=== PATIENT | female | born 1985 | race Asian ===

== ENCOUNTER → 2017-09-15 | Outpatient (CLI) | payer OTHER ==
[2017-09-15 13:25] LABS: BASO % 0.3 % (0.0-1.0); EOS # 0.1 10^3/uL (0.0-0.50); HEMATOCRIT 33.8 % (36.0-47.0); HEMOGLOBIN 11.8 g/dl (12.0-15.5); IMMATURE GRANULOCYTE % 0.6 % (0-3.0); LYMPH # 1.2 10^3/uL (1.5-4.5); LYMPH % 18.8 % (24.0-44.0); MEAN CORPUSCULAR HEMOGLOBIN 30.2 pg (27.0-33.0); MEAN CORPUSCULAR HGB CONC 34.9 g/dl (32.0-36.5); MEAN CORPUSCULAR VOLUME 86.4 fl (80.0-96.0); MONO # 0.4 10^3/uL (0.0-0.8); MONO % 5.9 % (0.0-5.0); NEUTROPHILS # 4.7 10^3/uL (1.8-7.7); NEUTROPHILS % 72.4 % (36.0-66.0); PLATELET COUNT, AUTOMATED 262 10^3/uL (150-450); RED BLOOD COUNT 3.91 10^6/uL (4.00-5.40); RED CELL DISTRIBUTION WIDTH 13.5 % (11.5-14.5); WHITE BLOOD COUNT 6.5 10^3/uL (4.0-10.0)
[2017-09-15 14:04] LABS: HBsAg Prenatal NEGATIVE (NEGATIVE); RUBELLA IgG QUALITATIVE IMMUNE (IMMUNE)
[2017-09-15 14:32] LABS: HEPATITIS C VIRUS ABY INDEX 0.1 INDEX (<0.8)
[2017-09-15 14:34] LABS: HIV 1&2 SCREEN CENTAUR NEGATIVE (NEGATIVE)
[2017-09-15 15:00] LABS: CHLAMYDIA DNA AMPLIFICATION NEGATIVE (NEGATIVE); GC DNA AMPLIFICATION NEGATIVE (NEGATIVE)
== END ==
LOC: M SMT 10:12
DX: Z36.89 Encounter for other specified antenatal screening (principal); Z3A.14 14 weeks gestation of pregnancy
CPT/HCPCS: 86762

== ENCOUNTER → 2017-10-05 | Outpatient (CLI) | payer OTHER | LOC: M RAD 06:14 | DX: Z34.82 Encounter for supervision of other normal pregnancy, second trimester (principal) ==

== ENCOUNTER → 2017-12-10 | Outpatient (CLI) | payer OTHER ==
[2017-12-10 13:56] LABS: BASO % 0.3 % (0.0-1.0); EOS # 0.1 10^3/uL (0.0-0.50); HEMATOCRIT 37.9 % (36.0-47.0); HEMOGLOBIN 12.7 g/dl (12.0-15.5); LYMPH # 0.8 10^3/uL (1.5-4.5); LYMPH % 11.1 % (24.0-44.0); MEAN CORPUSCULAR HEMOGLOBIN 30.2 pg (27.0-33.0); MEAN CORPUSCULAR HGB CONC 33.5 g/dl (32.0-36.5); MEAN CORPUSCULAR VOLUME 90.2 fl (80.0-96.0); MONO # 0.4 10^3/uL (0.0-0.8); MONO % 5.9 % (0.0-5.0); NEUTROPHILS # 5.8 10^3/uL (1.8-7.7); NEUTROPHILS % 80.7 % (36.0-66.0); PLATELET COUNT, AUTOMATED 222 10^3/uL (150-450); RED CELL DISTRIBUTION WIDTH 13.8 % (11.5-14.5); WHITE BLOOD COUNT 7.1 10^3/uL (4.0-10.0)
[2017-12-10 15:24] LABS: GLUCOSE CHALLENGE TEST 1 HOUR 105 MG/DL (LESS THAN 140)
== END ==
LOC: M SMT 09:47
DX: Z34.82 Encounter for supervision of other normal pregnancy, second trimester (principal); Z36.89 Encounter for other specified antenatal screening
CPT/HCPCS: 82950

== ENCOUNTER → 2018-01-31 | Outpatient (REF) | payer OTHER | LOC: M LAB REF 17:07 | PROVIDERS: ATTEND Advanced Practice Midwife | DX: Z34.83 Encounter for supervision of other normal pregnancy, third trimester (principal); Z36.85 Encounter for antenatal screening for Streptococcus B ==

== ENCOUNTER 2018-02-28 11:13 | Inpatient (IN) | payer OTHER ==
[~2018-02-28] VITALS: Ht 165.1 cm; Wt 74.5 kg
[2018-02-28] VITALS (44 sets, daily range): BP systolic 92–130; BP diastolic 52–80
[2018-02-28] MEDS ORDERED: PRENTAB9 PO (11:37)
[2018-02-28] MEDS ORDERED: OXYTOCIN DRIP 30 UNITS in APPROPRIATE DILUENT 1 EA IV SCH ×2 (12:00→23:21)
[2018-02-28] MEDS: LR 1,000 ML IV SCH ×4 (12:32→21:14)
[2018-02-28 12:35] LABS: HEMATOCRIT 36.9 % (36.0-47.0); HEMOGLOBIN 12.6 g/dl (12.0-15.5); MEAN CORPUSCULAR HEMOGLOBIN 30.4 pg (27.0-33.0); MEAN CORPUSCULAR HGB CONC 34.1 g/dl (32.0-36.5); MEAN CORPUSCULAR VOLUME 89.1 fl (80.0-96.0); PLATELET COUNT, AUTOMATED 228 10^3/uL (150-450); RED BLOOD COUNT 4.14 10^6/uL (4.00-5.40); WHITE BLOOD COUNT 6.6 10^3/uL (4.0-10.0)
--- NOTE | 2018-02-28 14:09 | HPEPDOC ---
Obstetrical History & Physical General Date of Admission Feb 28, 2018 at 11:13 Primary Care Physician: LUNA BRANCH CNM History of Present Illness CC: Induction of Labor HPI: Munria Almaguer is a 31 y.o. @ 40-2/7 weeks gestation with an ALLISON of 02/26/18. LMP: 05/22/2017. She presents for induction of labor. Reports occasional contractions and active movement. Denies vaginal bleeding or leaking of fluid. Uterine Contractions q 7-8 minutes that last 1-2 minutes since 1135. SROM? No. Movement? Yes. Bleeding/Discharge? Scant show from cervical exam. Care/Lab: Blood type: A+, Rh+, Ab negative BPs: WNL Total weight gained: 39 lbs GBS neg, group C+ Rubella: immune HIV neg Pap: hx of + HPV (2010). GC/CT: neg/neg Hep BsAg neg VDRL/RPR: non-reactive Diabetes Screen: 105 OB U/S: 09/03/2017: 1st TM US: Transabd U/S (limited, in-office): Single, live intrauterine with cardiac activity present. NZE=815qoz. [place] I- rump length consistent with 14+6 weeks EGA (c/w LMP). FINAL EDC: 02/26/18. No adnexal masses. No uterine masses. No free fluid. 10/05/2017: Anatomy: SIUP, FHR 152, EFW 310 grams, 59%. Placenta anterior grade 0, no previa or abruption. PHIL normal. Cervix 4 cm. Anatomy complete and normal. 01/31/2018 Vertex. POB Hx: Year Gender Gest Delivery Weight Complications? 1. 02/2012 F 41-3/7 8lbs 12 oz none 2. 03/2014 7-0/7 Spont 3. 06/2015 F 41-5/7 9lbs 4 oz none PMHx: Meds: prenatals? Yes Hypothyroid in 2nd PSHx: D&C in 2014 Allergies: Motrin and aspirin- rash Social Hx: , no tobacco, no etoh, no drugs Exam: Vitals: T:98.2 HR: 88 BP: 120/72 Abdomen:gravid SVE:2-3 cm/ 50%/-1, anterior, soft, scant show Monitor: moderate variability with no decelerations TOCO: Category 1 FHR tracing Assessment: 1. IUP @ 40-2/7 weeks gestation 2. elective induction of labor 3. GBS negative 4. Category I FHR tracing Plan: 1. Past Medical History Allergies Coded Allergies: Aspirin (Verified Allergy, Intermediate, RASH, 02/28/18) Ibuprofen (Verified Allergy, Intermediate, RASH, 02/28/18) Medications Scheduled Multivitamins/ ( 27-0.8 mg) 1 Tab Tab, 1 TAB PO DAILY Physical Examination Laboratory Data 24H LABS Laboratory Tests 2 02/28/18 11:46: Serology Scanned Report Hepatitis B Testing 02/28/18 12:20: Nucleated Red Blood Cells % (auto) 0.0 CBC/BMP Laboratory Tests 02/28/18 12:20 Red Blood Count 4.14, Mean Corpuscular Volume 89.1, Mean Corpuscular Hemoglobin 30.4, Mean Corpuscular Hemoglobin Concent 34.1, Red Cell Distribution Width 14.0 GME ATTESTATION GME ATTESTATION My faculty preceptor for this patient encounter was physically present during the encounter and was fully available. All aspects of the patient interview, examination, medical decision making process, and medical care plan development were reviewed and approved by the faculty preceptor. The faculty preceptor is aware and concurs with the plan as stated in the body of this note and will attest to such by his/her cosignature. MELLY PERDOMO DO Feb 28, 2018 14:09 LUNA BRANCH CNM Feb 28, 2018 18:14
--- NOTE | 2018-02-28 18:07 | IPNPDOC ---
Text Note Date of Service The patient was seen on 02/28/18. NOTE Subjective: Patient reports she feels her contractions and is debating getting an epidural now or later. Objective: FHR: 145, moderate variability, positive accelerations, no decelerations. Contractions every 2-4 minutes. Pitocin at 8 mu/min. SVE: 3-4/50/-2, soft, anterior, scant show. Assessment: IUP at 40.1 weeks gestation, Category I FHR tracing, latent labor Plan: Will continue and monitor and continue to increase IV Pitocin as needed to maintain contraction pattern. Anticipate cervical change and . Patient may get an epidural per her request. VS,Fishbone, I+O VS, Fishbone, I+O Laboratory Tests 02/28/18 12:20 Red Blood Count 4.14, Mean Corpuscular Volume 89.1, Mean Corpuscular Hemoglobin 30.4, Mean Corpuscular Hemoglobin Concent 34.1, Red Cell Distribution Width 14.0 Vital Signs Date Time Temp Pulse Resp B/P (MAP) Pulse Ox O2 Delivery O2 Flow Rate FiO2 02/28/18 17:00 99.4 89 107/64 (78) 02/28/18 15:10 18 LUNA BRANCH CNM Feb 28, 2018 18:07
[2018-02-28] MEDS ORDERED: FENTANYL 2MCG/ML ROPIVACAINE 0.2% IN 0.9% NACL 100ML IVBAG As Ordered ONE (19:07)
[2018-02-28] MEDS ORDERED: EPIDURAL COMMENT XX SCH (20:30)
[2018-02-28] MEDS ORDERED: NALOXONE INJ 0.4 MG/1 ML VIAL (J2310) IV PRN (20:30)
[2018-02-28] MEDS ORDERED: FENTANYL/ROPIVACAINE/NACL BAG 100 ML EPIDURAL SCH (20:30)
[2018-02-28] MEDS ORDERED: REFRIGERATOR IV KEYS XX PRN (20:30)
[2018-02-28] MEDS ORDERED: EPIDURAL/PCA KEYS XX PRN (20:30)
[2018-02-28] MEDS ORDERED: ONDANSETRON 4MG/2ML VIAL (J2405) IV PRN (20:30)
[2018-02-28] MEDS ORDERED: diphenhydrAMINE INJ 50MG/ML VIAL (J1200) IV PRN (20:30)
[2018-02-28] MEDS: ePHEDrine SULFATE 25 MG/5 ML(5MG/ML) SYRINGE IV PRN ×2 (21:12→21:26)
[2018-02-28] MEDS ORDERED: DIBUCAINE 1% OINTMENT 30GM TOP PRN (23:30)
[2018-02-28] MEDS ORDERED: METHYLERGONOVINE MALEATE 0.2 MG TAB PO PRN (23:30)
[2018-02-28] MEDS ORDERED: DOCUSATE SODIUM 100 MG CAP PO PRN (23:30)
[2018-02-28] MEDS ORDERED: ANUSOL HC CREAM 30GM TOP PRN (23:30)
--- NOTE | 2018-02-28 23:41 | DNPDOC ---
[facility] Delivery Note Delivery Note DATE OF DELIVERY: 02/28/2018 at 2153 PREDELIVERY DIAGNOSIS: 40-2/7 weeks' gestation and labor. POST DELIVERY DIAGNOSIS: Delivered. PROCEDURE: Spontaneous vaginal delivery. WIRELESS SALES REPRESENTATIVE: Luna Tan CNM, BOOM ANESTHESIA: epidural. ESTIMATED BLOOD LOSS: 350 mL. FINDINGS: 9 pounds 11 ounces; 4390 grams; male infant, Score 9/9. DELIVERY SUMMARY: Patient is a 32-year-old female who presented to L&D for an elective induction of labor. She received an epidural for pain management. The patient progressed to fully dilated at 2137 and pushed to a living male in the PAUL position with restitution to ROT at 2153. The anterior shoulder delivered with ease and the corpus immediately followed. The baby was active and crying while [id number] on maternal abdomen. The cord was clamped after pulsation ceased x2 and cut by the FOB. The placenta delivered spontaneously and intact at 2200. Uterine hemostasis was achieved via rapid infusion of IV Pitocin and fundal massage. The vagina and perineum were inspected and found to have a 1st degree perineal laceration that was repaired with a 3.[address]-1. The mom plans to breastfeed. They are naming him "Kailash Alfa" Both mom and baby are in stable condition. LUNA TAN CNM Feb 28, 2018 23:41
[2018-03-01 00:20] VITALS: BP 99/58
[2018-03-01] MEDS: ACETAMINOPHEN 500 MG TAB PO PRN ×3 (04:39→21:26)
[2018-03-01 05:54] VITALS: BP 105/61
[2018-03-01] MEDS: MEASLES,MUMPS,RUBELLA VACCINE INJ (MMR-II) (90707) SC SCH (08:58)
[2018-03-01] MEDS: RHOGAM 300 MCG (1500 IU) INJ (J2790) IM SCH (08:58)
[2018-03-01] MEDS: PRENATAL VITAMINS CHEWABLE TABLET PO SCH (09:25)
[2018-03-01 18:07] VITALS: BP 100/62
[2018-03-02 06:00] VITALS: BP_SYST 100; BP_SYST 118; BP_DIAS 57; BP_DIAS 62
--- NOTE | 2018-03-02 06:04 | NUR ---
Day 2 Status post , uncomplicated Subjective Pain is well controlled. Lochia decreasing and minimal. Voiding spontaneously. Tolerating a regular diet. Ambulating without any assistance. Denies any subjective fever/chills/nausea/vomiting/headache/visual changes/shortness of breath/chest pain. Objective Vitals: Normotensive, normal heart rate, afebrile, adequate urine output. Heart: regular, rate, and rhythm. no murmurs/gallops/rubs Lungs: clear to auscultation bilaterally, no wheezes/crackles/rales/ronchi Abd: soft, nontender, nondistended, uterine fundus is 2cm below umbilicus and firm Ext: no significant edema, nontender, negative Karon's bilaterally. Assessment/Plan: day 2. Recovering well. Hemodynamically stable, afebrile, good pain control. -Routine care -D/c to home today. -Routine infectious, fever, pain, and bleeding precautions reviewed Dr. Pa Mott, Christiano.O., F.A.C.O.G.
[2018-03-02] MEDS: RHOGAM 300 MCG (1500 IU) INJ (J2790) IM SCH (07:35)
[2018-03-02] MEDS: MEASLES,MUMPS,RUBELLA VACCINE INJ (MMR-II) (90707) SC SCH (07:36)
[2018-03-02] MEDS: PRENATAL VITAMINS CHEWABLE TABLET PO SCH (07:55)
[2018-03-02] MEDS ORDERED: MAPA500T2 PO (08:57)
== END 2018-03-02 09:45 | disposition home or self-care (01) | DRG 807 ==
LOC: M LDI 11:13 → M OBS 03-01 00:19
PROVIDERS: ADMIT Advanced Practice Midwife; ATTEND Advanced Practice Midwife
PROC: 10E0XZZ Delivery of Products of Conception, External Approach (ICD-10-PCS; principal; 2018-02-28)
PROC: 0HQ9XZZ Repair Perineum Skin, External Approach (ICD-10-PCS; 2018-02-28)
PROC: 3E033VJ Introduction of Other Hormone into Peripheral Vein, Percutaneous Approach (ICD-10-PCS; 2018-02-28)
DX: O48.0 Post-term pregnancy (principal); Z37.0 Single live birth; Z3A.40 40 weeks gestation of pregnancy; Z88.6 Allergy status to analgesic agent; O70.0 First degree perineal laceration during delivery

== ENCOUNTER → 2019-07-04 | Outpatient (CLI) | payer OTHER ==
[~2019-07-04] MED LIST: E-Z-PAQUE 96% w/w SUSP 176GM BTL As Ordered ONE; MAPA500T2 PO; PRENTAB9 PO
--- NOTE | 2019-07-04 17:00 | REP ---
Small bowel follow-through The procedure was performed under the direct supervision of Dr. Magana. The images were reviewed with Dr. Magana. The grain cleaner film shows no organomegaly or pathological masses. The intestinal gas pattern is nonspecific. Liquid barium was administered and the barium column was followed through the small bowel to the level of the terminal ileum. Small bowel transit time is approximately 30 minutes . During fluoroscopy gentle palpation shows all loops are freely movable and pliable. There are no fixed or angulated loops. The small bowel mucosal pattern is normal in course and caliber. There is no transition to suggest a partial small bowel obstruction. Spot filming of the terminal ileum shows it to be unremarkable. Impression: Small bowel follow-through examination within normal limits. 0.8 minutes of fluoro time was utilized for this procedure. Electronically Signed by ILENE Maldonado 07/04/2019 04:40 P Electronically Signed by Feliberto Magana MD 07/04/2019 04:50 P
== END ==
LOC: M RAD 08:14
PROVIDERS: ATTEND Internal Medicine Gastroenterology
DX: K60.2 Anal fissure, unspecified (principal)